=== PATIENT | female | born 1960 | race Caucasian/White ===

== ENCOUNTER → 2017-08-08 | Outpatient (CLI) | payer BC ==
[~2017-08-08] MED LIST: ACYC-113 PO; ALBU6.7H PO; ASCO10004 PO; BIOT25005 PO; BROMELAIN PO; CALC-533 PO; CHOL200024 PO; CYAN1TAB29 PO; CYCL-259 PO; DIPH25CA61 PO; FLUT16SP NS; GABA300C10 PO; GLUC-121 PO; GREE250C PO; HYALURONIC ACID PO; MAGN100T6 PO; MAGNESIUM PO; OMEG1CAP34 PO; OXYB5TAB7 PO; SERT50TA5 PO; VITAMIN B2 PO; ZOLP5TAB6 PO
== END ==
LOC: STAR 15:24
PROVIDERS: ATTEND Orthopaedic Surgery
DX: Z02.9 Encounter for administrative examinations, unspecified (principal)

== ENCOUNTER 2017-08-16 05:17 | Day surgery (SDC) | payer BC ==
[2017-08-08 16:26] VITALS: BP 116/92
[~2017-08-16] VITALS: Ht 157.5 cm; Wt 66.3 kg
[2017-08-16] MEDS ORDERED: LACTATED RINGERS 1,000 ML IV SCH (05:59)
[2017-08-16] MEDS ORDERED: LIDOCAINE 1%, 2ML SQ PRN (06:00)
[2017-08-16 06:05] VITALS: BP 116/92
[2017-08-16] MEDS ORDERED: BUPIVACAINE/PF 0.5% ONE (06:16)
[2017-08-16] MEDS ORDERED: KETOROLAC 30 MG/1 ML ONE (07:03)
[2017-08-16] MEDS ORDERED: MIDAZOLAM 1 MG/ML, 2ML ONE (07:03)
[2017-08-16] MEDS ORDERED: PROPOFOL 10 MG/ML, 20ML ONE (07:03)
[2017-08-16] MEDS ORDERED: ONDANSETRON 2MG/ML, 2ML ONE (07:03)
[2017-08-16] MEDS ORDERED: DEXAMETHASONE 4 MG/ML, 1ML ONE (07:03)
[2017-08-16] MEDS ORDERED: CEFAZOLIN 1,000 MG ONE (07:03)
[2017-08-16] MEDS ORDERED: FENTANYL PF 100 MCG/2ML ONE (07:03)
[2017-08-16] MEDS ORDERED: hydrALAzine 20 MG/ML, 1ML IV PRN (07:30)
[2017-08-16] MEDS ORDERED: METOCLOPRAMIDE 5 MG/ML, 2ML IV PRN (07:30)
[2017-08-16] MEDS ORDERED: ALBUTEROL/IPRATROPIUM 2.5MG/0.5MG, 3 ML NPPB PRN (07:30)
[2017-08-16] MEDS ORDERED: ACETAMINOPHEN 325 MG TABLET PO PRN (07:30)
[2017-08-16] MEDS ORDERED: ONDANSETRON 2MG/ML, 2ML IVPush PRN (07:30)
[2017-08-16] MEDS ORDERED: DIAZEPAM 5 MG/ML, 2ML IVPush PRN (07:30)
[2017-08-16] MEDS ORDERED: LABETALOL 5MG/ML, 20ML IV PRN (07:30)
[2017-08-16] MEDS ORDERED: OXYcodone 5 MG/5 ML ORAL.SOL UDC PO PRN (07:30)
[2017-08-16] MEDS ORDERED: FENTANYL PF 100 MCG/2ML IV PRN (07:30)
[2017-08-16] MEDS ORDERED: MEPERIDINE/PF 25MG/0.5ML IVPush PRN (07:30)
[2017-08-16] MEDS ORDERED: HYDROmorphone 1 MG/ML, 1ML IV PRN (07:30)
[2017-08-16] MEDS ORDERED: PROMETHAZINE 25 MG/ML, 1ML IV PRN (07:30)
[2017-08-16] MEDS ORDERED: MIDAZOLAM 1 MG/ML, 2ML IV PRN (07:30)
[2017-08-16] MEDS ORDERED: ROPIvacaine/PF 0.5%, 30 ML ONE (07:51)
== END 2017-08-16 12:15 ==
LOC: OUT 05:17
PROVIDERS: ATTEND Orthopaedic Surgery
DX: S83.282A Other tear of lateral meniscus, current injury, left knee, initial encounter (principal); S83.242A Other tear of medial meniscus, current injury, left knee, initial encounter; M65.862 Other synovitis and tenosynovitis, left lower leg; M94.262 Chondromalacia, left knee; J45.909 Unspecified asthma, uncomplicated; X58.XXXA Exposure to other specified factors, initial encounter; Y93.89 Activity, other specified; Y92.89 Other specified places as the place of occurrence of the external cause; Y99.8 Other external cause status; Z90.710 Acquired absence of both cervix and uterus; Z98.890 Other specified postprocedural states; Z88.5 Allergy status to narcotic agent
CPT/HCPCS: 29880; 88304; J0690; J1100; J1885; J2250; J2405; J2704; J2795; J3010; J3490; J7120